=== PATIENT | female | born 1995 | race Caucasian/White ===

== ENCOUNTER 2017-01-13 11:45 | Emergency (ER) | payer OTHER ==
[~2017-01-13] VITALS: Ht 162.6 cm; Wt 73.6 kg
[~2017-01-13 11:45] MED LIST: ANAPROX DS550 M1 PO; CIPRO500 MG PO; EXTRA STRENGTH500 M1 PO; IBUPROFEN800 MG PO; MOTRIN800 MG PO; Motrin PO; NICODERM CQ1 EAC1 TD; NOHOMEMEDS; PERCOCET 5/31 TABLET PO; PRENATAL VITAM1 EAC1 PO; ZOFRAN ODT4 MG PO
[2017-01-13 12:25] LABS: ADD MEDTOX COMMENT Y; AMPHETAMINE NEGATIVE (500 ng/mL); BARBITURATES NEGATIVE (200 ng/mL); BENZODIAZEPINES NEGATIVE (150 ng/mL); COCAINE PRESUMPTIVE POSITIVE (150 ng/mL); INTERNAL CONTROLS VALID? YES; METHADONE NEGATIVE (200 ng/mL); METHAMPHETAMINE NEGATIVE (500 ng/mL); OPIATES (MORPHINE) PRESUMPTIVE POSITIVE (100 ng/mL); OXYCODONE NEGATIVE (100 ng/mL); PHENCYCLIDINE NEGATIVE (25 ng/mL); PROPOXYPHENE NEGATIVE (300 ng/mL); THC CANNABINOIDS PRESUMPTIVE POSITIVE (50 ng/mL); TRICYCLIC ANTIDEPRESSANTS NEGATIVE (300 ng/mL)
[2017-01-13 12:50] LABS: OPIATES QUANTITATIVE VALUE 0 NG/ML
[2017-01-13 13:00] LABS: EOSINOPHIL (%) 1.4 % (0-5); EOSINOPHIL COUNT 0.1 K/uL (0-0.3); HEMATOCRIT 37.1 % (36.0-46.0); IMMATURE GRANULOCYTE (%) 0.3 % (0.0-0.7); INSTRUMENT ABS NEUTROPHIL CT 6.6 K/uL; LYMPHOCYTE COUNT 1.4 K/uL (1.0-2.8); MCH 25.3 PG (29.0-34.0); MCHC 32.1 G/DL (30.0-36.0); MCV 78.8 FL (83-99); MEAN PLAT.VOLUME 9.1 uM^3 (9.5-12.4); MONOCYTE (%) 6.2 % (3-12); MONOCYTE COUNT 0.5 K/uL (0-0.8); NEUTROPHIL (%) 75.8 % (45-76); NEUTROPHIL COUNT 6.6 K/uL (1.8-6.4); PLATELET COUNT 431 K/uL (156-360); RBC DIS.WIDTH-CV 15.4 % (11.8-14.6); RED BLOOD COUNT 4.71 M/uL (3.80-5.20); WHITE BLOOD COUNT 8.7 K/uL (4.1-10.2)
[2017-01-13 13:10] LABS: CHLORIDE 109 mEq/L (99-109); POTASSIUM 3.7 mEq/L (3.7-5.4); SODIUM 143 mEq/L (136-147)
[2017-01-13 13:12] LABS: GLUCOSE 100 mg/dL (70-99)
[2017-01-13 13:13] LABS: ANION GAP 10 MEQ/L (2-14)
[2017-01-13 13:14] LABS: TOTAL BILIRUBIN 0.3 mg/dL (0.0-1.0)
[2017-01-13 13:15] LABS: SERUM ETHYL ALCOHOL < 10 mg/dL
[2017-01-13 13:16] LABS: GFR ESTIMATE (CALCULATED) > 59 mL/min/
[2017-01-13 13:17] LABS: ALKALINE PHOSPHATASE 56 IU/L (3-129); DIRECT BILIRUBIN 0.1 mg/dL (0.0-0.3)
[2017-01-13 13:18] LABS: UREA NITROGEN (BUN) 9 mg/dL (9-23)
[2017-01-13 13:19] LABS: SALICYLATE < 5.0 MG/DL (15-30)
[2017-01-13 13:26] LABS: QUANTITATIVE HCG < 4.0 MIU/ML
[2017-01-13 20:55] VITALS: BP 110/73
== END 2017-01-13 21:04 | disposition home or self-care (01) ==
LOC: EME 11:45
PROVIDERS: Emergency Medicine
DX: T40.1X1A Poisoning by heroin, accidental (unintentional), initial encounter (principal); F11.10 Opioid abuse, uncomplicated; F19.10 Other psychoactive substance abuse, uncomplicated; F17.200 Nicotine dependence, unspecified, uncomplicated
CPT/HCPCS: 80048; 80076; 81003; 84702; 84999; 85025; 99281; 99285; G0480; J2310